=== PATIENT | male | born 1970 | race Caucasian/White ===

== ENCOUNTER 2018-03-18 09:13 | Emergency (ER) | payer MEDICAID ==
[~2018-03-18] VITALS: Ht 170.1 cm; Wt 90.7 kg
[~2018-03-18 09:13] MED LIST: FLEXERIL10 MG PO; HYDROCODONE BIT1 T11 PO; MOTRIN800 MG PO; VICO10300 PO
[2018-03-18] MEDS ORDERED: NAPROSYN500 MG PO (10:05)
[2018-03-18] MEDS ORDERED: CYCLOBENZAPRINE10 MG PO (10:05)
== END 2018-03-18 13:52 | disposition home or self-care (01) ==
LOC: ED 09:13
DX: S16.1XXA Strain of muscle, fascia and tendon at neck level, initial encounter (principal); S20.211A Contusion of right front wall of thorax, initial encounter; M25.512 Pain in left shoulder; F17.200 Nicotine dependence, unspecified, uncomplicated; V43.62XA Car passenger injured in collision with other type car in traffic accident, initial encounter; Y93.I9 Activity, other involving external motion; Y92.488 Other paved roadways as the place of occurrence of the external cause; Y99.8 Other external cause status